=== PATIENT | male | born 1965 ===

== ENCOUNTER 2017-05-21 18:45 | Inpatient (IN) ==
[2017-05-21] MEDS ORDERED: DOCUSATE SODIUM 100 MG CAPSULE PO PRN (22:12)
[2017-05-21] MEDS ORDERED: ONDANSETRON 4 MG/2 ML VIAL IV PRN (22:12)
[2017-05-21] MEDS ORDERED: ACETAMINOPHEN 325 MG TABLET PO PRN (22:12)
[2017-05-21] MEDS ORDERED: DEXTROSE 50% 25 GM/50 ML SYRINGE IV PRN (22:23)
[2017-05-21] MEDS ORDERED: GLUCAGON 1 MG VIAL IM PRN (22:23)
[2017-05-21] MEDS ORDERED: hydrALAZINE 20 MG/1 ML VIAL IV PRN (22:25)
--- NOTE | 2017-05-21 22:41 | Hospitalist History & Physical ---
Assessment and Plan (1) Cellulitis of head or scalp Status: Acute Current Visit: Yes (2) Non-insulin dependent type 2 diabetes mellitus Status: Acute Current Visit: Yes (3) HTN (hypertension) Status: Acute Assessment and plan: Plan: 1. Consult surgery for I&D, NPO for possible surgery, send blood cultures and routine labs including lactic acid level, IV fluids, NPO for possible surgery, prn pain medication, IV Vancomycin with pharmacy consult. 2. Glucose now down to the 200's on last accu ck. Will check HGB a1c, Insulin sliding scale and accu cks q 6 hours with hypoglycemia protocol. 3. Asked to bring in home medications, will utilize prn Hydralazine and Labetalol as needed to maintain SBP less than 160. 4. No indication for PUD px at this time. No GI hx. Will order SCD's for DVT px for now. Holding off on ordering Lovenox for possible surgery, encourage early ambulation. Fifty two minutes was spent on this patient not including procedures. Current Visit: Yes Qualifiers: Qualified Code(s): I10 - Essential (primary) hypertension History of Present Illness Chief complaint: Pain to the back of the head. History of present illness: Mr. Alicea is a 52 year old male with past medical history significant for CVA, HTN, DM, Asthma, and Prostate issues that presented to [facility] complaining of pain and swelling to the back of his head and was found to have possible cellulitis and hyperglycemia with blood glucose reported in the 600's. Per nursing he received 1 gram of Vancomycin and Insulin for his hyperglycemia. No labs are currently available. Onset of symptoms started 1 week and progressively worsened with patient having increasing fever and chills and overall malaise. He denies any modifying factors. He denies any trauma, insect bite, dizziness, SOB, wheezing, nausea or vomiting. He was accepted by the Hospitalist service and admitted as a direct admit for IV antibiotics and surgical consult. Patient does not have his home medications with him and he does not know the names of his medications. Allergies Allergy/AdvReac Type Severity Reaction Status Date / Time No Known Allergies Allergy Verified 05/21/17 21:07 Medical,Surgical,& Family Hx - Medical History Cardio: History of: Hypertension Neurology: History of: Cerebrovascular Accident ("couple years back"), Seizures HEENT: History of: Eye Problem (wears glasses) Endocrine: History of: Diabetes Mellitus (NIDDM) No history of: Thyroid Disorder Genitourinary: History of: Prostate Problems Gastrointestinal: History of: GI Problems (Constipation) Musculoskeletal: History of: Back/Neck Problems (back surgery) - Surgical History Cardiac Surgeries: Patient Denies: Cardiac Surgery Orthopedic Surgeries: Surgical HX of;: Orthopedic Surgery (left ankle), Spinal Surgery (hx of spinal surgery due to fracture of Lower spine from fall & ankle sx ) - Family History Family History: Reports;: Family Diabetes, Family Heart Disease, Family Hypertension - Social History Smoking Status: Never smoker Frequency of Alcohol Use: Occasionally Type of Drug Use: None Lives With:: staying at [facility] Functional capacity: independent ambulation 12 point system: reviewed and no additional remarkable complaints except as stated - Constitutional Constitutional: Present: chills, fever(s), malaise - EENT Eyes: Present: requires corrective lense Nose, mouth and throat: Present: other (positive pain posterior head ) - Cardiovascular Cardiovascular: Absent: chest pain at rest, diaphoresis, dyspnea, edema, palpitations - Respiratory Respiratory: Absent: cough, dyspnea on exertion, wheezing, pain on inspiration - Gastrointestinal Gastrointestinal: Present: constipation. Absent: abdominal pain - Genitourinary Genitourinary: Present: urinary frequency, other (hesitency at times) - Musculoskeletal Musculoskeletal: Absent: limited range of motion - Neurological Neurological: Absent: abnormal gait, confusion, syncope - Psychiatric Psychiatric: Absent: confusion, depression, panic attacks, suicidal ideation, visual hallucinations - Endocrine Endocrine: Present: fatigue, polyuria - Hematologic/Lymphatic Hematologic/Lymphatic: Absent: easy bleeding Exam - Constitutional Vitals: Period Temp Pulse Resp BP Sys/Meza Pulse Ox Last 24 Hr 99.3 F 20 173-204/86-87 95 General appearance: normal weight, no acute distress - Head Head exam: Present: other (posterior head/cervical with erythema and swelling firm area/no drainage) - Eye Eye exam: Present: EOMI Pupils: Present: ANIKA - ENT ENT exam: Present: normal exam - Neck Neck exam: Present: normal inspection. Absent: lymphadenopathy, thyromegaly - Respiratory Respiratory exam: Present: clear to auscultation bilaterally - Cardiovascular Cardiovascular exam: Present: regular rate and rhythm, tachycardia. Absent: JVD - GI/Abdominal GI/Abdominal exam: Present: normal bowel sounds. Absent: tenderness - Extremities Exam Extremities exam: Present: normal capillary refill, full ROM, other (one area healing on ely. ) - Back Exam Back exam: Absent: CVA tenderness (L), CVA tenderness (R), vertebral tenderness - Neurological Exam Neurological exam: Present: oriented X3 - Psychiatric Psychiatric exam: Present: normal affect - Skin Skin exam: Present: dry, erythema (flushed face, erythema to posterior head swelling noted as well) Quality Measures - VTE Deep Vein Thrombosis/Pulmonary Embolism Present on Admission: No
[2017-05-21] MEDS: SODIUM CHLORIDE 0.9% 1,000 ML IV SCH (23:06)
--- NOTE | 2017-05-21 23:06 | EKG Report ---
Stationary ECG Study [facility] Test Date: 05/21/2017 11:03:29 PM Pat Name: EDWARD KATHLEEN Department: Room: 330 Gender: M Graphic Editor: FRANCISCO MONTOYA : 1965 Requested by: Ovidio Rodriguez Order Number: [id number] Reading MD: CHEL BARROSO Intervals [place] Rate: 103 P: 29 NM: 152 QRS: 23 QRSD: 89 T: 1 QT: 345 QTc: 404 Interpretive Statements SINUS TACHYCARDIA LOW QRS VOLTAGE IN PRECORDIAL LEADS INFERIOR MYOCARDIAL INFARCTION, OF INDETERMINATE AGE Electronically Signed On 05-22-17 10:37:12 CDT by CHEL BARROSO [email or web address]
[2017-05-21 23:47] LABS: Basophils % 0.2 % (0.0-0.8); Eosinophils # 0.1 10*3/uL (0.0-0.87); Eosinophils % 0.4 % (0.00-10.9); Hematocrit 39.4 VOL% (42.0-52.0); Hemoglobin 13.8 GM/DL (14.0-18.0); Immature Granulocytes % 0.4 %; Immature Granulocytes Absolute 0.08 #; Lymphocytes # 1.3 10*3/uL (1.4-4.0); Lymphocytes % 6.8 % (21.2-54.2); Mean Corpuscular Hemoglobin 28 PG (27-34); Mean Corpuscular Volume 80.4 FL (87-102); Mean Platelet Volume 10.6 FL (9.6-12.0); Monocytes # 1.7 10*3/uL (0.11-0.8); Monocytes % 8.8 % (1.7-12.7); Neutrophils # 15.6 10*3/uL (1.4-7.4); Neutrophils % 83.4 % (38.7-73.9); Platelet Count 267 T/CUMM (130-400); Red Cell Distribution Width 13.1 % (9.3-17.3); White Blood Count 18.7 T/CUMM (4-12)
[2017-05-22 00:33] LABS: Albumin 2.9 G/DL (3.4-5.0); Bilirubin,Total 0.6 MG/DL (0.2-1.0); Calcium 8.3 MG/DL (8.5-10.1); Magnesium 1.8 MG/DL (1.8-2.4); Potassium 3.1 MMOL/L (3.5-5.1); Total Protein 6.9 G/DL (6.4-8.3)
[2017-05-22] MEDS: INSULIN LISPRO 100 UNIT/ML SUBCUT SCH ×2 (00:40→06:05)
[2017-05-22] MEDS ORDERED: POTASSIUM CHLORIDE RIDER 10 MEQ in PREMIX 1 EACH IV PRN (01:22)
[2017-05-22 04:06] LABS: Apearance,Urine CLEAR (Clear); Bilirubin,Urine Negative (Negative); Blood, Urine Negative (Negative); Glucose,Urine (UA) >=500 mg/dL (Negative); Ketones,Urine 80 mg/dL (Negative); Mucus,Urine Occasional /LPF (Occasional); Nitrite,Urine Negative (Negative); Protein,Urine 30 MG/DL; Urine Color Yellow (Yellow); Urine Specific Gravity 1.032 (1.001-1.035)
[2017-05-22] MEDS: VANCOMYCIN INJ 1,000 MG in SODIUM CHLORIDE 0.9% 250 ML IV SCH ×2 (05:29→16:50)
[2017-05-22] MEDS: SODIUM CHLORIDE 0.9% 1,000 ML IV SCH ×2 (06:05→15:30)
[2017-05-22 06:33] LABS: Calcium 8.4 MG/DL (8.5-10.1); Potassium 3.6 MMOL/L (3.5-5.1)
--- NOTE | 2017-05-22 07:52 | General Surgery Consult Note ---
Assessment and Plan (1) Neck abscess Status: Acute Assessment and plan: This is a large abscess at the junction of the posterior scalp and the upper neck. I recommended incision and drainage in the operating room. I discussed the risks, benefits, and alternatives of the operation with the patient, and the expected outcomes have been reviewed. The patient would like to proceed with the operation peer Current Visit: Yes History of Present Illness Chief complaint: neck pain with fever History of present illness: Mr. Alicea is a 52 year old male with a history of diabetes who admits to the hospital by hospitalist service with leukocytosis and neck pain with fever. Pain is in the back of his neck for about a week and a half. He had a similar problem with an abscess on his left leg in the past was treated with drainage. Home Medications Medication Instructions Recorded Confirmed Type Unable To Obtain [Unable to Obtain] 05/21/17 05/21/17 History Allergies Allergy/AdvReac Type Severity Reaction Status Date / Time No Known Allergies Allergy Verified 05/21/17 21:07 Medical,Surgical,& Family Hx - Medical History Cardio: History of: Hypertension, [place] Neurology: History of: Cerebrovascular Accident ("couple years back"), Seizures HEENT: History of: Eye Problem (wears glasses) Endocrine: History of: Diabetes Mellitus (NIDDM) No history of: Thyroid Disorder Genitourinary: History of: Prostate Problems Gastrointestinal: History of: GI Problems (Constipation) Musculoskeletal: History of: Back/Neck Problems (back surgery) - Surgical History Cardiac Surgeries: Patient Denies: Cardiac Surgery Orthopedic Surgeries: Surgical HX of;: Orthopedic Surgery (left ankle), Spinal Surgery (hx of spinal surgery due to fracture of Lower spine from fall & ankle sx ) - Family History Family History: Reports;: Family Diabetes, Family Heart Disease, Family Hypertension - Social History Smoking Status: Never smoker Frequency of Alcohol Use: Occasionally Type of Drug Use: None - Constitutional Constitutional: Present: as per HPI - EENT Nose, mouth and throat: Present: as per HPI - Cardiovascular Cardiovascular: Present: as per HPI - Respiratory Respiratory: Present: as per HPI - Gastrointestinal Gastrointestinal: Present: as per HPI - Genitourinary Genitourinary: Present: as per HPI - Musculoskeletal Musculoskeletal: Present: as per HPI - Neurological Neurological: Present: as per HPI - Endocrine Endocrine: Present: as per HPI Hematologic/Lymphatic: Present: as per HPI Exam - Constitutional Vitals: Period Temp Pulse Resp BP Sys/Meza Pulse Ox Last 24 Hr 97.8 F-100.7 F 73-105 16-20 143-204/75-88 92-95 General appearance: no acute distress, over weight - Head Head exam: Present: normal inspection, normocephalic - Eye Eye exam: Present: EOMI Pupils: Present: ANIKA - ENT ENT exam: Present: normal exam Mouth exam: Present: normal external inspection, normal voice - Neck Neck exam: Present: trachea midline, other (There is a large soft tissue abscess at the superior neck and lower posterior scalp.) - Respiratory Respiratory exam: Present: clear to auscultation bilaterally. Absent: accessory muscle use, chest wall tenderness - Cardiovascular Cardiovascular exam: Present: RRR. Absent: systolic murmur, tachycardia - GI/Abdominal GI/Abdominal exam: Present: normal bowel sounds, soft. Absent: tenderness, rebound - Extremities Exam Extremities exam: Present: normal inspection, normal capillary refill - Back Exam Back exam: Present: normal inspection - Neurological Exam Neurological exam: Present: alert, oriented X3 Speech: Present: normal - Skin Skin exam: Present: normal color, warm Quality Measures - VTE Deep Vein Thrombosis/Pulmonary Embolism Present on Admission: No Results - Labs CBC & BMP: 05/21/17 23:16 05/22/17 03:43
[2017-05-22] MEDS ORDERED: BUPIVACAINE MPF 0.25% /EPI 30 ML VIAL ONE (08:18)
--- NOTE | 2017-05-22 09:20 | Operative Note ---
Date of procedure: 05/22/17 Pre-op diagnosis: Posterior scalp and upper neck abscess Post-op diagnosis: same Procedure: Preoperative diagnosis Posterior scalp and upper neck abscess Postoperative diagnosis Same Procedures performed Incision and drainage of posterior scalp abscess complicated Findings Multiple loculations were broken up and the abscess was drained and irrigated. Cultures were sent to the lab. Specimen Cultures from posterior neck/scalp abscess Complications None apparent Indications Posterior scalp and upper neck abscess Description of procedure The patient was taken to the operating room and transferred to the operating table in the supine position. Pressure points were padded and SCDs were placed lower extremities. General LMA anesthesia was administered. The patient was placed in the lateral position. Posterior neck was prepped with Betadine and draped sterilely. Timeout was called. Incision was made over the abscess and a large amount of thick purulent fluid was drained. Cultures were sent to the lab. Loculations were broken up. There is no necrotic tissue that required debridement. Wound was irrigated and packed with a wet-to-dry dressing. Patient was awakened from anesthesia and transferred to recovery. Postoperative plan Wound care and antibiotic Anesthesia: SAL Surgeon / Physician: Wm Kiran Estimated blood loss: minimal Specimens: other (cultures) Condition: stable Disposition: PACU Results - Labs CBC & BMP: 05/21/17 23:16 05/22/17 03:43 Discharge Plan - Discharge Medications No Action Lisinopril 10 mg PO DAILY Glyburide/Metformin HCl [Glyburide-Metformin 2.5-500 mg] 1 each PO BID W/ MEALS Metoprolol Succinate Xl [Toprol Xl] 50 mg PO DAILY - Follow Up or Referral - Forms/Instructions
[2017-05-22] MEDS ORDERED: ALBUTEROL INHALER 8 GM INH ONE (09:29)
[2017-05-22] MEDS ORDERED: ALBUTEROL 2.5 MG/3 ML NEB RESP TX ONE (09:29)
--- NOTE | 2017-05-22 09:41 | Anesthesia Post-Op ---
Anesthesia Post OP - Post Ansesthetic Evaluation Patient seen in post op: Yes Resp: within normal limits CV: within normal limits Mental: within normal limits Temp: within normal limits Kckm-Mi-Gbaktsdim: within normal limits Nausea and Vomiting: within normal limits Pain: within normal limits
[2017-05-22] MEDS ORDERED: PROPOFOL 200 MG/20 ML VIAL IV ONE (09:44)
[2017-05-22] MEDS ORDERED: fentaNYL 100 MCG/2 ML VIAL ONE (09:45)
[2017-05-22] MEDS ORDERED: ROCURONIUM 100 MG/10 ML VIAL IV ONE (09:45)
[2017-05-22] MEDS ORDERED: MIDAZOLAM 2 MG/2 ML VIAL ONE (09:45)
[2017-05-22] MEDS ORDERED: SODIUM CHLORIDE 0.9% 1,000 ML IV ONE (09:46)
[2017-05-22] MEDS ORDERED: SEVOFLURANE 1 UNIT/15 MINUTE INH ONE (09:46)
[2017-05-22] MEDS ORDERED: DEXAMETHASONE 20 MG/5 ML VIAL ONE (09:46)
[2017-05-22] MEDS ORDERED: INSULIN REGULAR 100 UNIT/ML ONE (11:12)
[2017-05-22] MEDS: INSULIN REGULAR 100 UNIT/ML SUBCUT SCH ×3 (11:18→21:50)
--- NOTE | 2017-05-22 15:05 | Event Note ---
General Surgery Progress Note Chief complaint This patient is a 52-year-old man admitted with a posterior scalp and neck abscess treated with incision and drainage on 05/22/2017 Interval history No events since surgery. Patient's pain is well controlled. Physical exam The dressing appears dry with no bleeding Labs None new Imaging None new Assessment and plan Continue antibiotics and pain medicine Change dressing tomorrow Likely discharge home tomorrow with local wound
[2017-05-23] MEDS: SODIUM CHLORIDE 0.9% 1,000 ML IV SCH ×3 (03:16→14:39)
--- NOTE | 2017-05-23 03:58 | Event Note ---
General Surgery Progress Note Chief complaint This patient is a 52-year-old man admitted with a posterior scalp and neck abscess treated with incision and drainage on 05/22/2017 Interval history No events overnight. Patient is resting comfortably but is not sleeping on my examination. Still has high blood sugars. Physical exam The wound is clean with no further purulent drainage and no necrotic tissue is seen Labs None new Imaging None new Assessment and plan Continue antibiotics and local wound care Transition to oral Bactrim and follow-up final cultures Okay to discharge home from my standpoint with wound care at the [facility] and follow-up with me in 1 week.
[2017-05-23] MEDS: VANCOMYCIN INJ 1,000 MG in SODIUM CHLORIDE 0.9% 250 ML IV SCH (04:07)
[2017-05-23 06:31] LABS: Basophils % 0.1 % (0.0-0.8); Hematocrit 37.8 VOL% (42.0-52.0); Hemoglobin 13.3 GM/DL (14.0-18.0); Immature Granulocytes % 0.8 %; Immature Granulocytes Absolute 0.13 #; Lymphocytes # 1.3 10*3/uL (1.4-4.0); Lymphocytes % 7.4 % (21.2-54.2); Mean Corpuscular HGB Conc 35.2 GM/DL (32-36); Mean Corpuscular Hemoglobin 29 PG (27-34); Mean Corpuscular Volume 81.3 FL (87-102); Mean Platelet Volume 10.2 FL (9.6-12.0); Monocytes % 5.7 % (1.7-12.7); Neutrophils # 14.9 10*3/uL (1.4-7.4); Platelet Count 303 T/CUMM (130-400); Red Blood Count 4.65 MC/CUMM (3.8-5.5); Red Cell Distribution Width 13.4 % (9.3-17.3); White Blood Count 17.3 T/CUMM (4-12)
[2017-05-23] MEDS: INSULIN REGULAR 100 UNIT/ML SUBCUT SCH ×4 (08:47→20:39)
[2017-05-23] MEDS: SULFAMETHOX/TRIMETHOPRIM 800-160 MG TABLET PO SCH ×2 (08:47→20:32)
--- NOTE | 2017-05-23 14:29 | Hospitalist Progress Note ---
Hospitalist: Subjective Interval history: Patient has no complaints. He denies any pain/sob/cp. He is eating and drinking without any problems. Exam - Constitutional Vitals: Period Temp Pulse Resp BP Sys/Meza Pulse Ox Last 24 Hr 97.8 F-98.6 F 74-97 18-20 117-147/59-86 92-98 General appearance: no acute distress, over weight - Eye Eye exam: Present: EOMI Pupils: Present: ANIKA - ENT ENT exam: Present: normal oropharynx, other (s/p I&D of posterior scalp abscess ; +induration and erythema; no fluid expressed) - Respiratory Respiratory exam: Present: clear to auscultation bilaterally - Cardiovascular Cardiovascular exam: Present: regular rate and rhythm - GI/Abdominal GI/Abdominal exam: Present: normal bowel sounds, soft - Extremities Exam Extremities exam: Absent: edema Results - Labs CBC & BMP: 05/23/17 06:07 05/22/17 03:43 - Impressions Active Issues: 1. Scalp abscess s/p I&D; culture so far grew GPC 2. DM: sugars uncontrolled 3. Leukocytosis; mild improvement Plan: continue antibiotics; d/c IVFs; add lantus; await final culture results; monitor wbc; likely d/c in am as long as he remains stable Quality Measures - VTE Deep Vein Thrombosis/Pulmonary Embolism Present on Admission: No Specialty Discharge - Follow Up or Referrals Follow up with: Wm Kiran MD [Physician] - 1 Week
[2017-05-24 06:32] LABS: Basophils % 0.4 % (0.0-0.8); Eosinophils # 0.2 10*3/uL (0.0-0.87); Eosinophils % 1.9 % (0.00-10.9); Hematocrit 36.3 VOL% (42.0-52.0); Hemoglobin 12.6 GM/DL (14.0-18.0); Immature Granulocytes % 0.6 %; Immature Granulocytes Absolute 0.06 #; Lymphocytes # 2.1 10*3/uL (1.4-4.0); Lymphocytes % 20.5 % (21.2-54.2); Mean Corpuscular HGB Conc 34.7 GM/DL (32-36); Mean Corpuscular Hemoglobin 28 PG (27-34); Mean Corpuscular Volume 81.9 FL (87-102); Mean Platelet Volume 10.3 FL (9.6-12.0); Monocytes # 0.8 10*3/uL (0.11-0.8); Monocytes % 8.1 % (1.7-12.7); Neutrophils # 7.1 10*3/uL (1.4-7.4); Neutrophils % 68.5 % (38.7-73.9); Platelet Count 295 T/CUMM (130-400); Red Blood Count 4.43 MC/CUMM (3.8-5.5); Red Cell Distribution Width 13.6 % (9.3-17.3); White Blood Count 10.4 T/CUMM (4-12)
[2017-05-24 06:56] LABS: Calcium 8.1 MG/DL (8.5-10.1); Osmolality,Calculated 282.4 MOS/KG (273-304); Potassium 3.6 MMOL/L (3.5-5.1)
[2017-05-24] MEDS: INSULIN REGULAR 100 UNIT/ML SUBCUT SCH ×4 (08:55→21:53)
[2017-05-24] MEDS: SULFAMETHOX/TRIMETHOPRIM 800-160 MG TABLET PO SCH ×2 (08:55→22:02)
--- NOTE | 2017-05-24 10:25 | Discharge Summary ---
Hospital Course - Hospital Course Hospital Course: Patient presented with complaints of fever and neck pain. He was found to have a neck abscess. Active issues were: 1. Sepsis: Given tachycardia and leukocytosis of 19. He was given IVFs and started on antibiotics. Lactic acid level was normal. Tachycardia and leukocytosis has resolved. Current wbc is 10.4. 2. Abscess of posterior scalp and upper neck s/p I&D. Wound culture grew GPC. He was intially placed on vancomycin. He will be discharged on bactrim for 14 days. He will need to follow up with Dr. Kiran on 06/02/17. Consult for outpatient wound care has been placed. 3. h/o DM: uncontrolled; hba1c of 12.9. Will defer outpatient managment to PCM. Will continue home regimen. 4. h/o HTN: blood pressure controlled. Will discharge on lisinopril. Patient has reached his maximal hospital care. He is hemodynamically and clinically stable. He is safe for discharge. Follow up with PCM in 1-2 weeks and follow up with general surgery, Dr. Kiran in one week. Specialty Discharge - Follow Up or Referrals Follow up with: Wm Kiran MD [Physician] - 1 Week (call friday morning to make a one week appointment with Dr. Kiran [phone]) Discharge Plan - Discharge Medications New Sulfameth/Trimeth 800-160 Tab [Bactrim DS Tab] 1 tablet PO BID #28 tablet No Action Lisinopril 10 mg PO DAILY Glyburide/Metformin HCl [Glyburide-Metformin 2.5-500 mg] 1 each PO BID W/ MEALS Metoprolol Succinate Xl [Toprol Xl] 50 mg PO DAILY - Follow Up or Referral Follow Up: Wm Kiran MD [Physician] - 1 Week (call friday morning to make a one week appointment with Dr. Kiran [phone]) - Forms/Instructions Additional Discharge Instructions: follow up with PCM in 1-2 weeks. follow up with wound care Exam - Constitutional Vitals: Period Temp Pulse Resp BP Sys/Meza Pulse Ox Last 24 Hr 97.7 F-98.9 F 73-84 18-20 113-141/63-74 95-97 General appearance: no acute distress - Head Head exam: Present: normal inspection - Eye Eye exam: Present: EOMI Pupils: Present: ANIKA - ENT ENT exam: Present: normal oropharynx, other (s/p I&D of posterior scalp abscess ; +induration and erythema; some drainage) - Respiratory Respiratory exam: Present: clear to auscultation bilaterally. Absent: rales, rhonchi, wheezes - Cardiovascular Cardiovascular exam: Present: regular rate and rhythm - Neurological Exam Neurological exam: Present: alert, oriented X3 - Psychiatric Psychiatric exam: Present: normal affect, normal mood Discharge Results Procedures and tests throughout hospitalization: Pending Orders 05/21/17 23:16 Blood Culture Stat 05/22/17 Abscess Culture Routine Anaerobic Culture Routine Labs on day of discharge: Labs from last 24 hours 05/24/17 05/24/17 05/24/17 08:16 05:54 05:54 WBC 10.4 D RBC 4.43 Hgb 12.6 L Hct 36.3 L MCV 81.9 L MCH 28 MCHC 34.7 RDW 13.6 Plt Count 295 MPV 10.3 Neut % (Auto) 68.5 Lymph % (Auto) 20.5 L [place] % (Auto) 8.1 Eos % (Auto) 1.9 Baso % (Auto) 0.4 Neut # (Auto) 7.1 Lymph # (Auto) 2.1 [place] # (Auto) 0.8 Eos # (Auto) 0.2 Baso # (Auto) 0.0 Immature Gran % 0.6 Nucleated RBC % 0.0 Immature Gran # 0.06 Nucleated RBCs # 0.00 Immature Plt Fraction 0.0 Sodium 140 Potassium 3.6 Chloride 106 Carbon Dioxide 25 Anion Gap 12.6 BUN 11 Creatinine 0.60 L GFR Calculation 119 BUN/Creatinine Ratio 18.00 Glucose 183 H POC Glucose 190 H Calculated Osmolality 282.4 Calcium 8.1 L Magnesium 2.0 05/23/17 05/23/17 05/23/17 20:34 16:11 11:54 WBC RBC Hgb Hct MCV MCH MCHC RDW Plt Count MPV Neut % (Auto) Lymph % (Auto) [place] % (Auto) Eos % (Auto) Baso % (Auto) Neut # (Auto) Lymph # (Auto) [place] # (Auto) Eos # (Auto) Baso # (Auto) Immature Gran % Nucleated RBC % Immature Gran # Nucleated RBCs # Immature Plt Fraction Sodium Potassium Chloride Carbon Dioxide Anion Gap BUN Creatinine GFR Calculation BUN/Creatinine Ratio Glucose POC Glucose 294 H 315 H 231 H Calculated Osmolality Calcium Magnesium Preliminary micro results at discharge 05/22/17 Unknown Abscess Culture - Preliminary Neck - Abscess Gram Positive Cocci 05/21/17 23:16 Blood Culture - Preliminary Blood No growth at 1 day 05/21/17 23:16 Blood Culture - Preliminary Blood No growth at 1 day - Impressions Active Issues: 1. Sepsis: resolved 2. Scalp abscess s/p I&D; culture so far grew GPC; will discharge on bactrim 3. h/o DM: sugars uncontrolled, hba1c of 12.9. Will defer further management to PCM. Will discharge on home regimen. 4. Leukocytosis, resolved. 5. h/o HTN: bp controlled. Will discharge on home lisinopril. Discharge medications: see list Rn Call Center: Dr. Kiran of surgery Disposition: home Disposition status: improved Follow up: PCM in 1-2 weeks; Dr. Kiran in one week; wound care Function, elimination, and locomotion: independent DS: Provider Date of admission: 05/21/17 20:28 Primary care physician: . No PCP Attending physician on admission: Obed Luciano MD Consults: 05/21/17 22:12 Consult to Physician [CONS] Routine Comment: Cellulitis of the Head Consulting Provider: Wm Kiran Consulting Provider Notified: Yes When should Consulting Provider be notified: Now Consult to Specialist Group: Surgery When should Consulting Provider be notified: In am Person Notified: Dr. Kiran saw Date Notified: 05/22/17 Time Notified: 07:20 Consult Notification Comment: keisha called with room number and consult 05/24/17 10:11 Consult to Case Mgmt/Social Srvs [CONS] Routine Reason for Case Mgmt/Social Srvs: Home Health Consult Comment: wound care for incised and drained neck abscess Discharging clinician: Morgan Smalls MD
--- NOTE | 2017-05-24 10:43 | Event Note ---
The patient is doing well today. There are no new events. His wound continues to look good. There was a little bit more drainage the past 24 hours. There is no residual erythema, necrotic tissue, or purulent drainage from his neck wound. I am okay with him being discharged home on a course of Bactrim double strength 1 tab twice a day and follow-up with me in clinic on June 02, 2017.
--- NOTE | 2017-05-24 14:04 | Event Note ---
Plans were made for the patient to be discharged. Patient does not have insurance but he can receive wound care from a [facility] center. Unfortuantely, patient does not have transportation to go the wound center. I called Jailyn from , and she said that transportation is provided during the week. So, will d/c discharge today and arrange for transportation for next week. S: patient has no complaints O: unchanged from d/c summary; please reviewed A/P: 1. Scalp abscess s/p I&D 2. DM: sugars uncontrolled 3. Leukocytosis: resolved 4. HTN: blood pressure controlled Continue current care.
[2017-05-25] MEDS: SULFAMETHOX/TRIMETHOPRIM 800-160 MG TABLET PO SCH ×2 (08:10→21:00)
[2017-05-25] MEDS: INSULIN REGULAR 100 UNIT/ML SUBCUT SCH ×4 (08:10→21:27)
[2017-05-25] MEDS ORDERED: VANCOMYCIN INJ 1,000 MG in SODIUM CHLORIDE 0.9% 250 ML IV SCH (09:30)
--- NOTE | 2017-05-25 10:45 | Hospitalist Progress Note ---
Assessment and Plan (1) Cellulitis of head or scalp Status: Acute Assessment and plan: Continue antibiotics for this patient. Current Visit: Yes (2) Non-insulin dependent type 2 diabetes mellitus Status: Chronic Current Visit: Yes (3) HTN (hypertension) Status: Chronic Current Visit: Yes Qualifiers: Hypertension type: essential hypertension Qualified Code(s): I10 - Essential (primary) hypertension (4) Neck abscess Status: Acute Assessment and plan: Arrangements made for outpatient wound care at [facility]. Current Visit: Yes Hospitalist: Subjective Interval history: Patient is resting comfortably sitting up in chair no acute changes. No fevers or chills. Discharge was held due to transportation issues. Further assurance of transportation will be confirmed on Friday regarding patient's wound care on an outpatient basis at [facility]. Exam - Constitutional Vitals: Period Temp Pulse Resp BP Sys/Meza Pulse Ox Last 24 Hr 97.4 F-98.6 F 64-84 18-18 126-166/67-91 93-98 General appearance: normal weight - Head Head exam: Present: normal inspection - Eye Eye exam: Present: EOMI Pupils: Present: ANIKA - Respiratory Respiratory exam: Present: clear to auscultation bilaterally - Cardiovascular Cardiovascular exam: Present: regular rate and rhythm - GI/Abdominal GI/Abdominal exam: Present: normal bowel sounds - Extremities Exam Extremities exam: Present: normal inspection - Neurological Exam Neurological exam: Present: alert, oriented X3, CN II-XII intact - Psychiatric Psychiatric exam: Present: normal affect - Skin Skin exam: Present: normal color Results - Labs CBC & BMP: 05/24/17 05:54 05/24/17 05:54 Quality Measures - VTE Deep Vein Thrombosis/Pulmonary Embolism Present on Admission: No Specialty Discharge - Follow Up or Referrals Follow up with: Wm Kiran MD [Physician] - 1 Week (call friday morning to make a one week appointment with Dr. Kiran [phone])
[2017-05-25] MEDS ORDERED: PHENOL 1.4% THROAT SPRAY 177 ML BOTTLE PO PRN (10:49)
--- NOTE | 2017-05-25 11:09 | Event Note ---
This patient is now postoperative day 3 following incision and drainage of large posterior scalp upper neck abscess. His cultures have grown MSSA. His vancomycin has been discontinued and he is currently on Bactrim. He can go home once wound care can be arranged. I will continue to see him while he is here. He is to follow up with me on 06/02/2017 and go home on Bactrim double strength twice daily until then. His wound needs to be packed once a day with a wet-to-dry dressing.
--- NOTE | 2017-05-26 07:24 | Event Note ---
The patient was then disposed this morning when I came to see him. I have cleared him for discharge on prior visits. He should go home with Bactrim double strength twice daily and wound care once daily wet to dry dressings on the posterior scalp upper neck abscess site. I would like to see him back in clinic a week from today.
[2017-05-26] MEDS: INSULIN REGULAR 100 UNIT/ML SUBCUT SCH ×2 (08:14→12:40)
[2017-05-26] MEDS: SULFAMETHOX/TRIMETHOPRIM 800-160 MG TABLET PO SCH (09:00)
--- NOTE | 2017-05-26 10:40 | Discharge Summary ---
Hospital Course - Hospital Course Hospital Course: Patient presented with complaints of fever and neck pain. He was found to have a neck abscess. Active issues were: 1. Sepsis: Given tachycardia and leukocytosis of 19. He was given IVFs and started on antibiotics. Lactic acid level was normal. Tachycardia and leukocytosis has resolved. Current wbc is 10.4. 2. Abscess of posterior scalp and upper neck s/p I&D. Wound culture grew GPC. He was intially placed on vancomycin. He will be discharged on bactrim for 14 days. He will need to follow up with Dr. Kiran on 06/02/17. Consult for outpatient wound care has been placed. 3. h/o DM: uncontrolled; hba1c of 12.9. Will defer outpatient managment to PCM. Will continue home regimen. 4. h/o HTN: blood pressure controlled. Will discharge on lisinopril. Patient has reached his maximal hospital care. He is hemodynamically and clinically stable. He is safe for discharge. Follow up with PCM in 1-2 weeks and follow up with general surgery, Dr. Kiran in one week. His discharge was delayed because of arrangements for outpatient wound care at [facility] took a couple of days. He has remained stable. He understands that he will have daily wound care at [facility] and take his Bactrim twice a day and return to see Dr Kiran in a week. - Time spent with patient Time with patient DS: Greater than 30 minutes (35 were minutes required for exam , discharge planning, medicine reconciliation, documentation.) Diagnosis - Discharge Diagnosis (1) Non-insulin dependent type 2 diabetes mellitus Status: Chronic (2) HTN (hypertension) Status: Chronic (3) Neck abscess Status: Resolved Specialty Discharge - Follow Up or Referrals Follow up with: Wm Kiran MD [Physician] - 06/02/17 10:00 am (you will see Dr. Matos on your return appointment) - Speciality Discharge Instructions Surgery Instructions: daily dressing changes at [facility] as arranged. Discharge Plan - Discharge Data Disposition: Disch To Home/Self Care Condition at Discharge: Stable Discharge Diet: diabetic diet, heart healthy Activity: resume usual activities as tolerated - Discharge Medications New Sulfameth/Trimeth 800-160 Tab [Bactrim DS Tab] 1 tablet PO BID #28 tablet Continue Lisinopril 10 mg PO DAILY Glyburide/Metformin HCl [Glyburide-Metformin 2.5-500 mg] 1 each PO BID W/ MEALS Metoprolol Succinate Xl [Toprol Xl] 50 mg PO DAILY - Follow Up or Referral Follow Up: Wm Kiran MD [Physician] - 06/02/17 10:00 am (you will see Dr. Matos on your return appointment) - Forms/Instructions Instructions: Cellulitis (DC) Exam - Constitutional Vitals: Period Temp Pulse Resp BP Sys/Meza Pulse Ox Last 24 Hr 97.3 F-98.6 F 69-82 18-20 99-143/61-84 94-97 General appearance: normal weight, no acute distress - Eye Eye exam: Present: EOMI. Absent: scleral icterus - Neck Neck exam: Present: other (abscess on back of neck is packed and dressing is clean and dry.) - Respiratory Respiratory exam: Present: clear to auscultation bilaterally - Cardiovascular Cardiovascular exam: Present: regular rate and rhythm - GI/Abdominal GI/Abdominal exam: Present: normal bowel sounds, soft. Absent: tenderness - Extremities Exam Extremities exam: Absent: edema Discharge Results Procedures and tests throughout hospitalization: Pending Orders 05/21/17 23:16 Blood Culture Stat Labs on day of discharge: Labs from last 24 hours 05/26/17 05/25/17 05/25/17 06:49 21:13 16:38 POC Glucose 272 H 251 H 217 H 05/25/17 11:07 POC Glucose 322 H Preliminary micro results at discharge 05/21/17 23:16 Blood Culture - Preliminary Blood No growth at 3 days 05/21/17 23:16 Blood Culture - Preliminary Blood No growth at 3 days DS: Provider Date of admission: 05/21/17 20:28 Primary care physician: . No PCP Attending physician on admission: Obed Luciano MD Consults: 05/21/17 22:12 Consult to Physician [CONS] Routine Comment: Cellulitis of the Head Consulting Provider: Wm Kiran Consulting Provider Notified: Yes When should Consulting Provider be notified: Now Consult to Specialist Group: Surgery When should Consulting Provider be notified: In am Person Notified: Dr. Kiran saw Date Notified: 05/22/17 Time Notified: 07:20 Consult Notification Comment: keisha called with room number and consult 05/24/17 10:11 Consult to Case Mgmt/Social Srvs [CONS] Routine Reason for Case Mgmt/Social Srvs: Home Health Consult Comment: wound care for incised and drained neck abscess Discharging clinician: Thea Christian MD
[2017-05-26 11:11] VITALS: BP 130/66
== END 2017-05-26 11:55 | disposition home or self-care (01) | DRG 872 ==
LOC: SUATTDRO 20:28 → N.3E 20:28
PROVIDERS: ADMIT Internal Medicine; ATTEND Internal Medicine